=== PATIENT | male | born 2005 | race Caucasian/White ===

== ENCOUNTER 2023-05-22 15:34 | Emergency (ER) | payer MEDICAID ==
[~2023-05-22] VITALS: Ht 175.3 cm; Wt 81.6 kg
[2023-05-22 15:38] VITALS: BP 170/94; PULSE 143; RESP 22; TEMP 98; O2SAT 98
[2023-05-22] MEDS: HALOPERIDOL IM 5 MG/ML VIAL IM ONE (15:52)
[2023-05-22] MEDS: MIDAZOLAM 5 MG/1 ML VIAL IM ONE (15:55)
[2023-05-22 16:49] LABS: BASOPHILS % (AUTO) 0.2 % (0.0-2.0); EOSINOPHILS % (AUTO) 0.5 % (0.0-4.0); HEMATOCRIT 44.1 % (36-52); HEMOGLOBIN 15.6 g/dL (12.0-18.0); LYMPHOCYTES # (AUTO) 2.7 K/uL (2.0-11.5); LYMPHOCYTES % (AUTO) 30.2 % (20.5-51.1); MEAN CORPUSCULAR HEMOGLOBIN 28 pg (27-31); MEAN CORPUSCULAR HGB CONC 35 g/dL (33-37); MONOCYTES # (AUTO) 0.8 K/uL (0.8-1.0); MONOCYTES % (AUTO) 8.9 % (1.7-9.3); NEUTROPHILS # (AUTO) 5.5 K/uL (1.8-7.7); NEUTROPHILS % (AUTO) 60.2 % (42.2-75.2); PLATELET COUNT (AUTO) 250 K/uL (140-450); RED BLOOD CELL COUNT(AUTO) 5.52 MIL/uL (4.20-6.10); RED CELL DISTRIBUTION WIDTH 14.4 % (11.6-13.7); WHITE BLOOD COUNT (AUTO) 9.1 K/uL (4.5-11.0)
[2023-05-22 17:11] LABS: ANION GAP 16.9 (8-16); CALCIUM 8.9 mg/dL (8.5-10.1); CARBON DIOXIDE 24.6 mmol/L (21-32); CREATININE 0.9 mg/dL (0.6-1.3); POTASSIUM 3.5 mmol/L (3.5-5.1)
[2023-05-22 17:13] LABS: ALANINE AMINOTRANSFERASE 32 U/L (12-78); ALBUMIN 4.4 g/dL (3.4-5.0); ALCOHOL, BLOOD < 3 mg/dL (<10); ALKALINE PHOSPHATASE 81 U/L (50-136); ASPARTATE AMINOTRANSFERASE 18 U/L (15-37); BILIRUBIN,DIRECT 0.1 mg/dL (0.0-0.3); SALICYLATE < 2.8 mg/dL (2.8-20.0); THYROID STIMULATING HORMONE 2.41 uIU/mL (0.34-3.74); TOTAL BILIRUBIN 0.6 mg/dL (0.0-1.0); TOTAL PROTEIN, SERUM 9.6 g/dL (6.4-8.2)
[2023-05-22 18:09] VITALS: O2SAT 98
[2023-05-22 18:51] LABS: APPEARANCE,URINE CLEAR (CLEAR); BILIRUBIN,URINE NEGATIVE (NEGATIVE); BLOOD, URINE NEGATIVE (NEGATIVE); COLOR,URINE YELLOW (YELLOW); LEUKOCYTE ESTERASE ,URINE NEGATIVE (NEGATIVE); NITRITE, URINE NEGATIVE (NEGATIVE); PROTEIN,URINE TRACE (NEGATIVE); UGLUCOSE NEGATIVE (NEGATIVE); UROBILINOGEN,URINE 0.2 EU/dL (0.2 - 1)
[2023-05-22 18:52] LABS: BACTERIA,URINE 0-2 /HPF (None Seen); RBC,URINE 0-5 /HPF (0-5); SQUAMOUS EPITHELIAL CELL,UR 0-3 (FEW) /LPF (0-3 (FEW)); WBC,URINE 0 /HPF (0-5)
[2023-05-22 18:53] LABS: MUCUS,URINE None Seen /LPF (None Seen)
[2023-05-22 19:35] LABS: AMPHETAMINE, URINE NEGATIVE ng/ml (NEG <=1000); BARBITURATE, URINE NEGATIVE ng/ml (NEG <=200); BENZODIAZEPINE, URINE NEGATIVE ng/mL (NEG <=200); CANNABINOID, URINE POSITIVE ng/mL (NEG <=50); COCAINE, URINE NEGATIVE ng/mL (NEG <=300); OPIATE, URINE NEGATIVE ng/mL (NEG <=2000); PHENCYCLIDINE SCREEN,URINE NEGATIVE ng/mL (NEG <=25)
[2023-05-22] MEDS: OLANZapine 5 MG ODT SL ONE (20:20)
[2023-05-22] MEDS ORDERED: LORazepam 1 MG TAB PO PRN (23:35)
[2023-05-23 07:26] VITALS: O2SAT 98
[2023-05-23 07:59] VITALS: BP 161/55; PULSE 93; RESP 18; TEMP 97.7
[2023-05-23] MEDS: OLANZapine 5 MG ODT PO SCH (09:18)
[2023-05-23 11:19] VITALS: O2SAT 100
[2023-05-23] MEDS ORDERED: OLAN5TAB65 PO (11:49)
== END 2023-05-23 11:56 | disposition home or self-care (01) ==
LOC: MED 15:34
DX: F23 Brief psychotic disorder (principal); Z20.822 Contact with and (suspected) exposure to COVID-19; Z79.899 Other long term (current) drug therapy
CPT/HCPCS: 36415; 70450; 71045; 80048; 80076; 80305; 81001; 84443; 85025; 87426; 93005; 96372; 99291; G0480; G0482; J1630; J2250